=== PATIENT | female | born 1960 | race Caucasian/White ===

== ENCOUNTER 2022-02-15 10:53 | Outpatient (CLI) | payer OTHER, SELFPAY | END 2022-02-15 10:54 | disposition home or self-care (01) | LOC: LONREF 12:52 | PROVIDERS: Visit Provider Obstetrics & Gynecology | DX: Z01.419 Encounter for gynecological examination (general) (routine) without abnormal findings (principal); N95.2 Postmenopausal atrophic vaginitis; Z11.3 Encounter for screening for infections with a predominantly sexual mode of transmission | CPT/HCPCS: 87624; 88175 ==

== ENCOUNTER 2023-09-15 10:00 | Outpatient (CLI) | payer OTHER, SELFPAY | END 2023-09-15 10:01 | disposition home or self-care (01) | LOC: NFLDREF 10:01 | PROVIDERS: Visit Provider Obstetrics & Gynecology | DX: Z01.419 Encounter for gynecological examination (general) (routine) without abnormal findings (principal); Z13.6 Encounter for screening for cardiovascular disorders | CPT/HCPCS: 80061 ==

== ENCOUNTER 2024-06-29 14:45 | Outpatient (CLI) | payer OTHER, SELFPAY | END 2024-06-29 14:46 | disposition home or self-care (01) | LOC: NFLDREF 06-30 10:49 | PROVIDERS: Visit Provider Obstetrics & Gynecology | DX: N89.8 Other specified noninflammatory disorders of vagina (principal); N76.4 Abscess of vulva | CPT/HCPCS: 87070 ==

== ENCOUNTER 2024-07-27 16:39 | Outpatient (CLI) | payer OTHER, SELFPAY ==
[2024-07-30 09:20] LABS: HPV Source Cervix; HPV, High Risk by TMA Detected
[2024-07-30 15:09] LABS: HPV Genotype 16 by TMA Not Detected; HPV Genotype 18/45 by TMA Detected; HPVG Source Cervix
[2024-08-06 14:13] LABS: Pap Test Reviewed by Path Done
== END 2024-07-27 16:40 | disposition home or self-care (01) ==
PROVIDERS: Visit Provider Obstetrics & Gynecology
DX: R87.612 Low grade squamous intraepithelial lesion on cytologic smear of cervix (LGSIL) (principal)
CPT/HCPCS: 87624; 87625; 88141; 88142

== ENCOUNTER 2024-09-08 05:56 | Day surgery (SDC) | payer OTHER, SELFPAY ==
--- OUTSIDE RECORDS SUMMARY | 2024-09-08 05:59 | XMS_ITS | Clinical Summary ---
Author Organization [facility] Address [address] [place] [address] Care Team Providers Care Grounds Manager Name Role Phone Danita Lawrence MD Primary Care Provider [phone] Allergies Active Allergy Reactions Criticality Noted Date Comments Duloxetine Diarrhea 07/17/2024 Sertraline Hcl Diarrhea 07/17/2024 Medications levothyroxine (SYNTHROID) 75 mcg tablet Take 1 tablet by mouth once daily. 0 09/30/2012 Active diphenoxylate-a tropine, 2.5-0.025 mg, (LOMOTIL) 2.5-0.025 mg tablet Take 2 tablets by mouth 4 times daily if needed for Diarrhea. 0 09/30/2012 Active estradiol (ESTRACE) 0.1 mg/g vaginal cream Insert into the vagina at bedtime. 0 07/28/2015 Active simvastatin (ZOCOR) 10 mg tablet Take 1 tablet by mouth at bedtime. 0 08/10/2018 Active Active Problems Problem Noted Date Diagnosed Date Obesity, Class II, BMI 35-39.9 08/24/2017 NITISH (obstructive sleep apnea) Encounters Date Type Department Care Team Description 07/28/2024 Lab Requisition [facility] [phone] Mulu Rodriguez MD 07/17/2024 8:53 PM PATTERN DRAFTER - 07/17/2024 10:02 PM PATTERN DRAFTER Emergency [facility] [place] [address] [address] [address], [place], initial encounter (Primary Dx); Acute midline low back pain without sciatica Discharge Disposition: Home Self Care from Last 3 Months Immunizations Name Administration Dates Next Due Hepatitis B (Adult) 02/29/2016,10/27/2014,2002 Influenza A (H1N1), Inactivated 07/07/2009 Influenza, IIV3 (Age 6-35 mos) 04/19/2013,2011 Influenza, IIV3 (Age >=3 years) 07/01/2014 Influenza, IIV4 04/17/2017,05/15/2016,06/08/2015 MMR 06/07/2003 Td (Age >=7 Years) 06/07/2003 Tdap 02/18/2014 Family History Medical History Relation Name Comments Heart Disease Father age 79 Aneurysm Mother brain Dementia Mother Heart Disease Paternal Uncle Relation Name Status Comments Father Mother (Age 85) Paternal Uncle Social History Tobacco Use Types Packs/Day Years Used Date Smoking Tobacco: Former Smokeless Tobacco: Never Tobacco Cessation:Counseling Given: Yes Alcohol Use Standard Drinks/Week Comments Yes 0 (1 standard drink = 0.6 oz pur e alcohol) occassional Comments No Sex and Gender Information Value Date Recorded Sex Assigned at Not on file Legal Sex Female 5:47 AM PATTERN DRAFTER Gender Identity Not on file Sexual Orientation Not on file Obstetrics History Last Filed Vital Signs Vital Sign Reading Time Taken Comments Blood Pressure 131/68 07/17/2024 9:12 PM PATTERN DRAFTER Pulse 80 07/17/2024 9:12 PM PATTERN DRAFTER Temperature 37 C (98.6 F) 07/17/2024 9:12 PM PATTERN DRAFTER Respiratory Rate 17 07/17/2024 9:12 PM PATTERN DRAFTER Oxygen Saturation 97% 07/17/2024 9:12 PM PATTERN DRAFTER Inhaled Oxygen Concentration - - Weight 93.4 kg (206 lb) 07/17/2024 9:12 PM PATTERN DRAFTER Height 154.9 cm (5' 1) 07/17/2024 9:12 PM PATTERN DRAFTER Body Mass Index 38.92 07/17/2024 9:12 PM PATTERN DRAFTER Plan of Treatment Health Maintenance Due Date Last Done Comments HIV for age 15-65 1975 Hepatitis C screening for ag e 18-79 1978 Colonoscopy through age 75 2005 Lipids for age 45-75 2005 Mammogram for age 45-75 2005 Pneumococcal series for age 50+ (1 of 1 - PCV) 2010 Zoster (shingles) series for age 50+ (1 of 2) 2010 Depression screening for age 12+ 11/26/2017 11/27/19 17 BMI (ht and wt on same day) for age 18+ 08/10/2019 08/10/2018, 08/21/2017, 11/26/2016, Additional history exists RSV vaccine for adults or (1 - Risk 60-74 years 1-dose series) 2020 Tetanus booster 02/19/2024 02/18/2014, 06/07/2003 COVID-19 vaccine series ( season) 2024 06/27/2022, 05/31/2021, 11/07/2020, Additional history exists Influenza for age 50-64 03/21/2024 04/17/20 17, 05/15/2016, 06/08/2015, Additional history exists Pap test for age 21-65 09/15/2026 , 09/15/2023, 02/15/2022, Additional history exists Tdap Completed 02/18/2014 Procedures Procedure Name Priority Date/Time Associated Diagnosis Comments LAB TRACKING EVENT Routine 2024 4: 00 PM PATTERN DRAFTER PATH TISSUE EXAM Routine 2024 4:00 PM PATTERN DRAFTER RN SHIFT MGR THIN PREP PAP SCREEN IMAGED Routine 09/15/2023 12:00 PM PATTERN DRAFTER from Last 3 Months or Most Recently Relevant to Health Maintenance Results * LAB TRACKING EVENT (2024 4:00 PM PATTERN DRAFTER) Other (Other) Client Collect / Unknown 2024 4:00 PM PATTERN DRAFTER 07/28/2024 1:18 PM PATTERN DRAFTER us Mulu Rodriguez MD LAB BILL ONLY Final Resu lt [facility] [address] [place] [address], * PATH TISSUE EXAM (2024 4:00 PM PATTERN DRAFTER) Case Report Pathology Report Case: [id number] Authorizing Provider: Mulu Rodriguez MD Collected: 2024 1600 Ordering Location: [facility] Received: 07/28/2024 7399 Pathologist: Foster Macedo MD Specimens: A) - Cervical Biopsy, 11 o'clock B) - Cervical Biopsy C) - Endocervical Curettings 07/30/2024 2:27 PM PATTERN DRAFTER [facility] Final Diagnosis A) CERVIX, 11:00, BIOPSY: 1. Benign cervical mucosa a. Sampling: Ectocervix b. Transformation zone: Not visualized 2. Negative for glandular neoplasia, squamous intraepithelial lesion, and malignancy B) CERVIX, 7:00, BIOPSY: 1. Benign cervical mucosa a. Sampling: Ectocervix b. Transformation zone: Not visualized 2. Negative for glandular neoplasia, squamous intraepithelial lesion, and malignancy C) ENDOCERVIX, CURETTAGE: 1. Fragments of benign endocervical and ectocervical tissue with reactive/metaplast ic changes 2. Negative for glandular neoplasia, squamous intraepithelial lesion, and malignancy 07/30/2024 2:27 PM [facility] Comment The patient's prior Pap test ( [id number], 09/15/2023) was diagnosed as low grade squamous intraepithelial lesion (LSIL). Concurrent HR-HPV testing was positive for HR-HPV other (non-16/18) subtype(s). The atypical cells seen on the prior cervical Pap test are NOT explained by the current biopsies and ECC. 07/30/2024 2:27 PM [facility] Clinical Information LSIL Pap, +HPV 07/30/2024 2:27 PM [facility] Gross Description A) Received in formalin, labeled with the patient's name and A 11:00, is a single cuenca mucosal fragment measuring 0.3 cm. The specimen is submitted in toto in one cassette. B) Received in formalin, labeled with the patient's name and B 7:00, is a single cuenca mucosal fragment measuring 0.5 cm. The specimen is submitted in toto in one cassette. C) Received in formalin, labeled with the patient's name and ECC, is a 0.5 x 0.3 x 0.1 cm aggregate of blood tinged mucous. The specimen is entirely submitted in 1 cassette. EVM 07/28/2024 07/30/2024 2:27 PM PATTERN DRAFTER [facility] Microscopic Description The final diagnosis is based on microscopic examination of appropriate sections of all specimens. Immunohistochemica l staining was performed, the results of which are as follows: - p16 (Part C): Negative 07/30/2024 2:27 PM PATTERN DRAFTER [facility] Additional Information Interpreted at [facility] - [address] [facility] [address], [place] [address] Immunohistochemist ry controls were reviewed and approved by the pathologist during this examination. 07/30/2024 2:27 PM PATTERN DRAFTER [facility] Other (Cervical Biopsy) 2024 4:00 PM PATTERN DRAFTER 07/28/2024 5:46 PM PATTERN DRAFTER Specimen (specimen) (Cervical Biopsy) 2024 4:00 PM PATTERN DRAFTER 07/28/2024 5:46 PM PATTERN DRAFTER Specimen (specimen) (Endocervical Curettings) 2024 4:00 PM PATTERN DRAFTER 07/28/2024 5:46 PM PATTERN DRAFTER us Mulu Rodriguez MD PATHOLOGY/CYTOLOGY Final R esult [facility] [address] [place] [address], * (ABNORMAL) RN SHIFT MGR THIN PREP PAP SCREEN IMAGED (09/15/2023 12:00 PM PATTERN DRAFTER) Case Report Gynecologic Cytology Report Case: [id number] Authorizing Provider: Mulu Rodriguez MD Collected: 09/15/2023 1200 Ordering Location: [facility] Received: 09/16/2023 1045 First Screen: Shannon Arnold Pathologist: Jeannine Ortega MD Specimen: RN SHIFT MGR ThinPrep Vial Screening, Cervical 09/24/2023 7:52 AM PATTERN DRAFTER [facility] INTERPRETATION/ RESULT LOW GRADE SQUAMOUS INTRAEPITHELIAL LESION (LSIL)(A) (none) 09/24/2023 7:52 AM PATTERN DRAFTER [facility] IMEN ADEQUACY Satisfactory for evaluation Endocervical component present 09/24/2023 7:52 AM PATTERN DRAFTER [facility] HPV REQUEST HPV and PAP 09/24/2023 7:52 AM PATTERN DRAFTER [facility] Date of LMP 09/24/2023 7:52 AM PATTERN DRAFTER [facility] Comment:2007 Last Pap Date 02/15/2022 09/24/2023 7:52 AM PATTERN DRAFTER [facility] Last Pap Result LSIL 7:52 AM PATTERN DRAFTER [facility] Comment:High rish HPV + Abnormal Pap or [place] Bx in last 5 years Yes 09/24/2023 7:52 AM PATTERN DRAFTER [facility] Menstrual Status Postmenopausal 09/24/2023 7:52 AM PATTERN DRAFTER [facility] [place] Bx Done Today No 09/24/2023 7:52 AM PATTERN DRAFTER [facility] Additional Information 09/24/2023 7:52 AM [facility] Comment: Interpreted at [facility] - [address], [place] [address] Automated Review Successful 09/24/2023 7:52 AM [facility] Comment:Specimen processed s uccessfully by automated correctional guard device, ThinPrep Imaging System, [employer] ANCILLARY TESTING RN SHIFT MGR HPV Ordered, Please see separate report 09/24/2023 7:52 AM [facility] Note The pap test is a screening technique, not a diagnostic procedure. It is used primarily to screen for squamous cancers and precursor lesions. Published studies have shown that it is subject to both false negative and false positive results. The pap test should not be used as the sole means to diagnose or exclude pre-malignant and malignant lesions. 09/24/2023 7:52 AM [facility] Other (Cervical) 09/15/2023 12:00 PM PATTERN DRAFTER 09/16/2023 10:45 AM PATTERN DRAFTER us Mluu Rodriguez MD PATHOLOGY/CYTOLOGY Final R esult [facility] [address] [place] [address], [place] from Last 3 Months or Most Recently Relevant to Health Maintenance Insurance [facility] Care Teams Grounds Manager Relationship Specialty Start Date End Date Danita Lawrence MD [address] [place] [address] PCP - General Family Practice 07/17/24
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
--- OUTSIDE RECORDS SUMMARY | 2024-09-08 06:01 | XMS_ITS | Clinical Summary ---
Author Organization [facility] Address [address] , [address] [place] [address] Phone Care Team Providers Care Histopath Tech Name Role Phone [facility] Unavailable Unava ilable Conditions or Problems Problem Name Problem Code Onset Date Status Entry Date Provider Comment Standard Description Annotate Carpal tunnel syndrome, left upper limb G56.02 (ICD-10-CM ) Active Francis Arana MD Carpal tunnel syndrome, left upper limb Medications No information available. Medications Administered No information available. Allergies, Adverse Reactions, Alerts No information available. Results Date Name Value Unit Range Flag Description Internal Other: Verbal Autho rization/Emergency Contact - OBS VERBAL_EMER DONE Verbal au thorization and emergency contact Internal Other: Authorizatio n - OBS [id number] Yes GE use only - for LinkLogic import when terms are not otherwise specified HIECONSENT Yes Consent To Release information to the Health Information Exchange (HIE) Plan of Care No information available. Procedures Code Procedure Name Date Entry Date CPT-47223 Nerve Conduction 3-4 studies CPT-38472 EMG with NCS (5+ muscles) - 1 limb 08/08 Vital Signs No information available. Immunizations No information available. Advance Directives No information available.
[2024-09-08 06:12] VITALS: BP 135/61; PULSE 67; RESP 16; TEMP 36.7; O2SAT 97; BMI 40.0
[2024-09-08] MEDS: LACTATED RINGERS 1000 ML 1,000 ML 100 ML IV (06:30)
[2024-09-08] MEDS: SODIUM CHLORIDE 0.9 % (FLUSH) 10 ML SYRINGE IVF (06:30)
--- NOTE | 2024-09-08 07:35 | P.ANES_ITS ---
Anesthesia Charges Start Date/Time Anesthesia Start Date: 09/08/24 Anesthesia Start Time: 07:26 Stop Date/Time Anesthesia Stop Date: 09/08/24 Anesthesia Stop Time: 08:27 Coding CPT Codes CPT Codes: ANESTH VAGINAL PROCEDURES - 31595 ([id number]) P3 - PATIENT W/SEVERE SYS DISEASE, QK - BATCH UNLOADER 2-4 CNCRNT ANES PROC, QX - SERVICE ORDER EXPEDITER SVC W/ MD MED DIRECTION
--- NOTE | 2024-09-08 07:35 | W.ANESCHARGE ---
Anesthesia Charges Start Date/Time Anesthesia Start Date: 09/08/24 Anesthesia Start Time: 07:26 Stop Date/Time Anesthesia Stop Date: 09/08/24 Anesthesia Stop Time: 08:27 Coding CPT Codes CPT Codes: ANESTH VAGINAL PROCEDURES - 23639 ([id number]) P3 - PATIENT W/SEVERE SYS DISEASE, QK - DIGITAL FORENSIC ANALYST 2-4 CNCRNT ANES PROC, QX - VACUUM APPLICATOR OPERATOR SVC W/ MD MED DIRECTION
[2024-09-08] MEDS: BUPIVACAINE 0.25% 30 ML INJECTION (07:50)
[2024-09-08] MEDS: LIDOCAINE 1%-EPI 1:100,000 20 ML INFILTRATI (07:50)
[2024-09-08] MEDS: FERRIC SUBSULFATE 8 GM VIAL 1 VIAL TOPICAL (08:13)
--- NOTE | 2024-09-08 08:21 | W.PM.GYNPROC ---
Procedure Note Date of procedure: 09/08/24 Will [facility] bill your pro fee for this procedure?: Yes Pre-op diagnosis: Persistent low grade cervical dysplasia. Prior history of cervical cone biopsy in 1984. Inconsistency between recent pap and colposcopy/biopsies. Post-op diagnosis: Persistent low grade cervical dysplasia. Prior history of cervical cone biopsy in 1984. Inconsistency between recent pap and colposcopy/biopsies. Procedure: Cold knife cervical cone. Anesthesia: MAC and local (paracervical block) Complications: None. Surgeon: Mulu Rodriguez MD Medical Esthetician: Sandra Salmeron Estimated blood loss (mL): 5 Pathology: specimen obtained, sent to pathology (Cervical cone biospy) Condition: stable Disposition: same day Findings: Normal-appearing cervix without gross lesions. Tranformation zone within endocervical canal. Procedure Description: After obtaining informed consent, the patient was taken to the operating room where she received monitored anesthesia care. She was prepared and draped in the normal, sterile fashion in the dorsal lithotomy position. A medium [place] open-sided speculum was introduced into the vagina and the cervix visualized. The anterior lip of the cervix was grasped with a single-tooth tenaculum for traction. A paracervical block was administered using a total of 20 mL of a 50:50 solution of 0.25% Marcaine plain and 1% lidocaine with epinephrine. Stay stitches of 0 Vicryl were placed at the 9 0'clock and 3 o/clock positions for hemostasis. Lugol's solution was applied to the cervix. The transformation zone was visualized just within the endocervix. A [place] blade was then used to excise the transformation zone circumferentially. A Kapoor scissors was used to transect the cone-shaped specimen from the cervix. Rollerball electrocautery was used to cauterize the excision base circumferentially for hemostasis. The free tagged ends of the stay stitches were cut close to the knots. Monsel's solution was applied to the excision base. All instruments were then removed. Sponge, lap, needle, and instrument counts reported as correct x2. The patient was taken to the recovery room awake in stable condition.
[2024-09-08 08:24] VITALS: BP 110/45; PULSE 75; RESP 14; TEMP 36.6; O2SAT 93
[2024-09-08 08:30] VITALS: BP 112/43; PULSE 66; RESP 14; O2SAT 93
[2024-09-08 08:45] VITALS: BP 113/50; PULSE 70; RESP 16; O2SAT 95
--- NOTE | 2024-09-08 08:48 | P.ANES_ITS ---
Anesthesia Charges Start Date/Time Anesthesia Start Date: 09/08/24 Anesthesia Start Time: 07:25 Stop Date/Time Anesthesia Stop Date: 09/08/24 Anesthesia Stop Time: 08:27 Coding CPT Codes CPT Codes: ANESTH VAGINAL PROCEDURES - 68549 ([id number]) P3 - PATIENT W/SEVERE SYS DISEASE, QK - HAM BONER 2-4 CNCRNT ANES PROC, QX - REELING MACHINE SETUP OPERATOR SVC W/ MD MED DIRECTION
--- NOTE | 2024-09-08 08:48 | W.ANESCHARGE ---
Anesthesia Charges Start Date/Time Anesthesia Start Date: 09/08/24 Anesthesia Start Time: 07:25 Stop Date/Time Anesthesia Stop Date: 09/08/24 Anesthesia Stop Time: 08:27 Coding CPT Codes CPT Codes: ANESTH VAGINAL PROCEDURES - 51296 ([id number]) P3 - PATIENT W/SEVERE SYS DISEASE, QK - CHIEF CRNA 2-4 CNCRNT ANES PROC, QX - WORSHIP DIRECTOR SVC W/ MD MED DIRECTION
[2024-09-08 09:00] VITALS: BP 104/55; PULSE 68; RESP 16; O2SAT 93
[2024-09-08] MEDS: ACETAMINOPHEN 325 MG TABLET 650 MG PO (09:10)
[2024-09-08 09:15] VITALS: BP 126/61; PULSE 68; RESP 16; O2SAT 92
== END 2024-09-08 09:34 | disposition home or self-care (01) ==
PROVIDERS: Visit Provider Obstetrics & Gynecology
PROC: 0UBC7ZZ Excision of Cervix, Via Natural or Artificial Opening (ICD-10-PCS; CPT 57520; principal; 2024-09-08 07:15)
DX: N87.9 Dysplasia of cervix uteri, unspecified (principal)
CPT/HCPCS: 57520; 00940; 88307; A9270; J0665; J1100; J1885; J2250; J2405; J2704; J3010; J7120